=== PATIENT | female | born 1990 | race African-American/Black ===

== ENCOUNTER 2017-07-15 14:14 | Emergency (ER) | payer BC, OTHER ==
[~2017-07-15] VITALS: Ht 182.9 cm; Wt 146.0 kg
[~2017-07-15 14:14] MED LIST: PRILOSEC
[2017-07-15] MEDS ORDERED: KETOROLAC 60MG/2ML VIAL IM ONE (17:15)
[2017-07-15] MEDS ORDERED: TETANUS, DIPHTHERIA, PERTUSSIS VAC/PF 0.5ML (>7YR OLD) IM ONE (18:45)
[2017-07-15 20:00] VITALS: BP 117/91
== END 2017-07-15 21:17 | disposition home or self-care (01) ==
LOC: ER 14:14
DX: S39.012A Strain of muscle, fascia and tendon of lower back, initial encounter (principal); S61.411A Laceration without foreign body of right hand, initial encounter; S71.111A Laceration without foreign body, right thigh, initial encounter; S09.8XXA Other specified injuries of head, initial encounter; V49.40XA Driver injured in collision with unspecified motor vehicles in traffic accident, initial encounter; Y93.89 Activity, other specified; Y92.410 Unspecified street and highway as the place of occurrence of the external cause; Z23 Encounter for immunization; F17.210 Nicotine dependence, cigarettes, uncomplicated
CPT/HCPCS: 12002; 70450; 73090; 73130; 90471; 90715; 96372; 99284; A4217; J1885; Z7610

== ENCOUNTER 2024-02-13 14:13 | Emergency (ER) | payer OTHER ==
[~2024-02-13] VITALS: Ht 177.8 cm; Wt 110.0 kg
[2024-02-13 14:25] VITALS: BP 138/99; PULSE 113; RESP 24; O2SAT 100
== END 2024-02-13 22:17 | disposition left against medical advice (07) ==
LOC: ER 14:13
DX: F41.9 Anxiety disorder, unspecified (principal); Z53.21 Procedure and treatment not carried out due to patient leaving prior to being seen by health care provider